=== PATIENT | male | born 1960 | race Caucasian/White ===

== ENCOUNTER 2020-08-04 16:32 | Emergency (ER) | payer MEDICARE, MEDICAID, SELFPAY ==
[2020-08-04 17:10] VITALS: BP 88/52; PULSE 72; RESP 20; TEMP 36.7; O2SAT 100
[2020-08-04 17:24] VITALS: BP 88/52; PULSE 72; RESP 20; TEMP 36.7; O2SAT 100
--- NOTE | 2020-08-04 17:47 | ED.MALEGU ---
HPI - Male Genitourinary General Chief complaint: Urogenital-Male Stated complaint: Urogenital-Male Time Seen by Provider: 08/04/20 17:47 Source: patient Mode of arrival: ambulatory Limitations: no limitations History of Present Illness HPI Narrative: Saurabh Rojas is a 59 o male with a PMH of gout, high cholesterol, depression, diabetes, HTN,cardiac stents, who comes to [facility] with urinary hesitancy and difficulty urinating Patient appears to have difficulty with cognitive function, is using a walker, is here with mother; unknown etiology to these problems but patient has CP Related Data Home Medications Medication Instructions Recorded Confirmed allopurinol 100 mg PO DAILY 08/04/20 08/04/20 aspirin 81 mg PO DAILY 08/04/20 08/04/20 atorvastatin 40 mg PO DAILY 08/04/20 08/04/20 clopidogrel 75 mg PO DAILY 08/04/20 08/04/20 escitalopram oxalate 15 mg PO HS 08/04/20 08/04/20 fenofibrate micronized 134 mg PO DAILY 08/04/20 08/04/20 furosemide 60 mg PO QAM 08/04/20 08/04/20 insulin lispro [Humalog U-100 1 sliding scale dose SUBCUT 08/04/20 08/04/20 Insulin] USEASDIRECTD lisinopril 20 mg PO DAILY 08/04/20 08/04/20 metoprolol tartrate 25 mg PO BID 08/04/20 08/04/20 Allergies Allergy/AdvReac Type Severity Reaction Status Date / Time latex Allergy Unknown Rash Verified 08/04/20 17:16 Review of Systems Review of Systems: Narrative: CONSTITUTIONAL: Denies fever, chills, sweats. EYES: Denies visual changes, redness, discharge. ENT: Denies rhinorrhea, congestion, sore throat, otalgia. CARDIOVASCULAR: Denies chest pain, palpitations, edema. RESPIRATORY: Denies dyspnea, wheezing, cough GASTROINTESTINAL: Denies abdominal pain, nausea, vomiting, diarrhea. GENITOURINARY: has dysuria, hematuria, abnormal discharge SKIN: Denies rash or itching. Red lesion to R groin NEUROLOGIC: Denies numbness, or focal weakness. PSYCHIATRIC: Denies anxiety or depression. [facility] Past Medical History Medical History (Updated 08/04/20 @ 18:33 by Verena Willoughby CNP) Cerebral palsy Diabetes High cholesterol HTN (hypertension) Surgical History Surgical History History of heart artery stent Family History Family History Other Hypertension Social History Social History (Updated 08/04/20 @ 18:22 by Verena Willoughby CNP) Smoking status: Never smoker Alcohol intake: never Comments At time of signature, I agree with nursing past medical, surgical, social and family history. There is no relevant family history pertinent to the presenting complaint. BP is low Exam Narrative: Exam Narrative: GENERAL: This is a well-nourished, well-developed patient, in mild distress. Able to give some history HEAD: normocephalic, atraumatic. EYES: PERRL. Sclera clear/white. Vision is grossly intact. EARS: External ears normal, auditory canals clear and without drainage, TMs normal without perforation. Hearing grossly intact. NOSE: External nose normal without nasal discharge, nares without redness, no rhinorrhea. THROAT: Mucous membranes moist, posterior pharynx NECK: Neck supple, non-tender CARDIOVASCULAR: Regular rate and rhythm without murmurs, gallops, or rubs. RESPIRATORY: Clear to auscultation. Breath sounds equal bilaterally. No wheezes, rales, or rhonchi. GASTROINTESTINAL: Abdomen soft, non-tender, SKIN: warm, intact with excoriation of skin R groin and buttocks NEURO: awake, alert, and oriented to person, place and time. There were no obvious focal neurologic abnormalities. Steady gait EXTREMITIES: Normal range of motion. BACK: Nontender without deformity Course Course Emergency Course: Patient brought here by mother for difficulty urinating, skin lesion in genital area Patient unable to urinate; red rash in genital area will treat with triamcinolone Patient will go to [facility] Report given Vital Signs Domi
--- NOTE | 2020-08-04 18:30 | PC.NURSE ---
PT UNABLE TO VOID AND HAS DRANK 1 BOTTLE OF WATER
== END 2020-08-04 18:40 | disposition short-term general hospital (02) ==
PROVIDERS: Emergency Provider Nurse Practitioner; PCP Internal Medicine
DX: R33.9 Retention of urine, unspecified (principal); S30.811A Abrasion of abdominal wall, initial encounter; X58.XXXA Exposure to other specified factors, initial encounter; G80.9 Cerebral palsy, unspecified; E11.9 Type 2 diabetes mellitus without complications; E78.00 Pure hypercholesterolemia, unspecified; I10 Essential (primary) hypertension; Z95.5 Presence of coronary angioplasty implant and graft; M10.9 Gout, unspecified
CPT/HCPCS: 99213; G0463